=== PATIENT | male | born 1945 | race Caucasian/White ===

== ENCOUNTER 2018-09-25 06:16 | Day surgery (SDC) | payer OTHER ==
[2018-09-20 16:49] LABS: Urine Appearance CLEAR; Urine Bilirubin NEGATIVE (NEG); Urine Blood NEGATIVE (NEG); Urine Color YELLOW; Urine Glucose NEGATIVE (NEG); Urine Protein NEGATIVE (NEG); Urine Specific Gravity 1.025 (1.005-1.030); Urine pH 6.5 (5.0-7.0)
[2018-09-20 16:55] LABS: Urine Microscopic Reflex ORDER UMIC
[2018-09-20 17:05] LABS: Albumin 4.3 g/dL (3.4-5.0); Bilirubin Total 0.2 mg/dL (0.2-1.0); Protein, Total 8.1 g/dL (6.4-8.2)
[2018-09-20 20:28] LABS: Urine Bacteria <20 /HPF (NONE SEEN); Urine Culture Reflex Order REFLEXED; Urine RBC <5 /HPF (NONE SEEN)
--- OUTSIDE RECORDS SUMMARY | 2018-09-25 06:23 | XMS REPORT ---
:1945 Author Organization [employer] Care Team Providers Name Role Phone Davis Carver Provider Role Unavailable Allergies, Adverse Reactions, Alerts Substance Reaction Event Type N.K.D.A. Info Not Available Non Drug Allergy Problems Problem Type Condition Code Onset Dates Condition Status Problem Unilateral primary osteoarthritis, M17.12 Active left knee Problem Internal derangement of left knee M23.92 Active Problem Pain, joint, knee, left M25.562 Active Assessment Internal derangement of left knee M23.92 Active Assessment Unilateral primary osteoarthritis, M17.12 Active left knee Assessment Pain, joint, knee, left M25.562 Active Medications Medication Code Code Instructions Start End Date Status Dosage System Date Losartan [facility] 42299645709 50 MG Oral Active TAKE 1 Potassium TABLET BY MOUTH EVERY DAY Atorvastatin [facility] 56249397646 20 MG Oral Active TAKE 1 Calcium TABLET BY MOUTH EVERY DAY Results No Known Results Summary Purpose eClinicalWorks Submission
[2018-09-25] MEDS ORDERED: CEFAZOLIN 1GM (PREMIX IV) 1 GM/50 ML BAG ONE (06:40)
[2018-09-25] MEDS ORDERED: Ringers Lactate 1,000 ML IV ONE (06:40)
[2018-09-25] MEDS ORDERED: LIDOCAINE 1% MPF 5 ML VIAL ONE (06:48)
[2018-09-25] MEDS ORDERED: BUPIVACAINE 0.25% PF 10 ML VIAL ONE ×3 (07:34→07:55)
[2018-09-25] MEDS ORDERED: DEPO-MEDROL 40 MG/ML IM ONE (07:35)
[2018-09-25] MEDS ORDERED: FENTANYL CITR 100 MCG/2 ML ONE ×2 (07:38→08:20)
[2018-09-25] MEDS ORDERED: PROPOFOL 200 MG/20 ML VIAL IV ONE (07:38)
[2018-09-25] MEDS ORDERED: MIDAZOLAM HCL 2 MG/2 ML INJ ONE (07:39)
[2018-09-25] MEDS ORDERED: LIDOCAINE 1% MPF 2 ML AMPULE ONE (07:39)
[2018-09-25] MEDS ORDERED: ONDANSETRON 4 MG/2 ML VIAL ONE (07:39)
--- NOTE | 2018-09-25 09:42 | P.BOP ---
Preoperative diagnosis: LEFT KNEE INTERNAL DERANGEMENT, MRI POST.HORN MED. MENISC. TEAR Postoperative diagnosis: LEFT KNEE MED.& LAT. MENISC. TEARS, MED. COMPARTMENT DJD Primary procedure: D.AShazia Baker KNEEw/MED.&LAT. PARTIAL MENISECTOMIES, SHAVE CHONDROMAL.MED.FEM.COND Mason Helper: Davis Carver Estimated blood loss: <5 ML Specimen: SHAVINGS Findings: MED. & LAT. MENISC. TEARS, CHONDROMAL. MED. FEMORAL CONDYLE Anesthesia: General Complications: None Fluids & blood products: INJ.0.25% MARCAINE 10mL; 1mL DEPO-MEDROL 40mg Transferred to: Recovery Room Condition: Good
[2018-09-25] MEDS: HYDROMORPHONE HCL 2 MG/ML inj ONE ×2 (09:46→09:51)
[2018-09-25] MEDS ORDERED: HYDROCODONE/APAP 5/325 MG TAB ONE (10:42)
--- NOTE | 2018-09-25 20:29 | OP ---
Date of Procedure: 09/25/2018 Surgeon: Davis Carver MD Casket Inspector: Dr. Steve Carver. Preoperative Diagnosis: Left knee internal derangement. MRI indicating posterior horn medial menisc al tear. Postoperative Diagnoses: Left knee medial and lateral meniscal tears and medial compartment degenera tive joint disease. Procedures: Diagnostic arthroscopy of the left knee with medial and lateral partial meniscectomies a nd shaving of chondromalacia of medial femoral condyle. Indications: This 73-year-old male has had problems since he lifted a deer into an [place] in [place] [facility] er. He had locking, popping, and giving way episodes with limitation in activities that has not impr gianluca. The patient on MRI scan has indication of posterior horn medial meniscal tear in the AP view o f the knee. With increased contrast, there appears to be fraying and damage to the anterior horn of the lateral meniscus as well. The patient is aware of risks and benefits. Conservative management h as not helped to alleviate symptoms over 2 months. The patient was able to ask all questions and hav e them answered, and he has elected to proceed with diagnostic arthroscopy and indicated procedures f or persistent mechanical symptoms limiting use of his left knee. Range of motion has been limited to 0-82 degrees flexion. Technique: The patient was taken to the operating room and given a general anesthesia. After a time -out, in which all pertinent facts were discussed, it was decided to proceed with the scheduled opera tion. The left lower extremity was prepped and draped after the limb was placed in a tourniquet for the proximal thigh and a limb layne. The distal end of the table was removed so that the knee would flex and hang at 90 degrees. The right lower extremity was supported with a trough cushion and a vicente lster that that kept the hip from dropping into extension. The limb was exsanguinated with an Esmarc h bandage and the tourniquet was raised to 250 mmHg and left up for 69 minutes during this procedure. The puncture wounds were made on each side of the infrapatellar tendon, instrumentation through the medial portal and the scope was passed into the lateral portal. The suprapatellar pouch was clear a nd the patella was tracking in the center of the trochlear groove. There was mild fraying of the cho ndral surface of the patella. The surface of the trochlear groove was quite smooth and pristine. Pa ssing into the medial compartment, the medial compartment was tight. There was difficulty seeing in through the posterior horn area. An 18-gauge needle was used to make multiple punctures in the media l collateral ligament. Attention was moved away from the medial compartment. Inspection of the intr acondylar notch showed the ACL and origin of the PCL to be intact and functioning normally without ev idence of injury or pathology. The shaver was used to clear some anterior fat pad and ligamentum muc osum for visualization. The lateral compartment revealed fraying and tearing of the anterior horn of the lateral meniscus. The shaver was introduced and the edges were trimmed to a stable remnant of t hat tear. Attention was then turned back to the medial compartment. Additional stretching was ciera ed out and additional multiple punctures with an 18-gauge spinal needle for the lateral collateral li gament were also accomplished. There was adequate space then for shaving the posterior horn tear of the medial meniscus, adjacent to the ACL and PCL. The insertion could be visualized and the calcifie d and degenerative tear in that area was approached with a suction punch and trimmed to prevent impin gement. The shaver was used to trim the rest of the posterior horn tear to a stable remnant. There was 1 area of a small chondral flap tear on the medial femoral condyle that exposed bone directly ove r the area of the posterior horn tear with flexion maximized. That area was shaved and smoothed. Th ere was no reason to perform microfracture in that area. The knee was noted to extend to 0 and flex to 120+ degrees with passive range of motion. The knee was irrigated with agitation to move any rodolfo dral particles as the suction shaver was active in the supracondylar pouch area removing free-floatin g chondral fragments. The instrumentation was withdrawn. The 2 punctures on each side of the infrap atellar tendon were closed with interrupted sutures of 4-0 nylon. The knee was injected in the subcu taneous tissue only with 0.25 Marcaine 10 mL total. The intra-articular space was injected with 1 mL of Depo-Medrol 40 mg. Xeroform gauze, flats, and ABD pad and soft roll was used as a bandage and co emmanuel with an Mo wrap. The patient was then taken to the recovery room having tolerated the procedu re well. Estimated blood loss was less than 5 mL. The tourniquet time was 69 minutes at 250 mmHg. MANUEL/WANG Voice ID: [id number] Report ID: [id number]
== END 2018-09-25 11:15 | disposition home or self-care (01) ==
LOC: OR 06:16
PROVIDERS: ATTEND Orthopaedic Surgery
PROC: 0SBD4ZZ Excision of Left Knee Joint, Percutaneous Endoscopic Approach (ICD-10-PCS; 2018-09-25)
PROC: 0SBD4ZZ Excision of Left Knee Joint, Percutaneous Endoscopic Approach (ICD-10-PCS; principal; 2018-09-25 07:30)
DX: S83.282A Other tear of lateral meniscus, current injury, left knee, initial encounter (principal); S83.242A Other tear of medial meniscus, current injury, left knee, initial encounter; M17.12 Unilateral primary osteoarthritis, left knee; I10 Essential (primary) hypertension; Z95.1 Presence of aortocoronary bypass graft; F17.210 Nicotine dependence, cigarettes, uncomplicated; Z79.01 Long term (current) use of anticoagulants; Z82.49 Family history of ischemic heart disease and other diseases of the circulatory system
CPT/HCPCS: 29880; 36415; 80053; 83036; 85025; 87088; 88304; J0690; J1030; J1170; J2001; J2250; J2405; J2704; J3010 ×2; 81003; 81015; 87086